=== PATIENT | female | born 1940 | race Caucasian/White ===

== ENCOUNTER 2018-01-22 09:49 | Outpatient (CLI) | payer MEDICARE | END 2018-01-22 09:50 | disposition home or self-care (01) | LOC: BICULT 09:49 | PROVIDERS: ATTEND Family Medicine | DX: N28.1 Cyst of kidney, acquired (principal); I10 Essential (primary) hypertension; Z82.71 Family history of polycystic kidney | CPT/HCPCS: 76770 ==

== ENCOUNTER 2018-02-12 14:07 | Outpatient (CLI) | payer MEDICARE | END 2018-02-12 14:08 | disposition home or self-care (01) | LOC: BICMAMMO 14:07 | PROVIDERS: ATTEND Family Medicine | DX: Z12.31 Encounter for screening mammogram for malignant neoplasm of breast (principal); Z78.0 Asymptomatic menopausal state; M81.0 Age-related osteoporosis without current pathological fracture; R92.1 Mammographic calcification found on diagnostic imaging of breast | CPT/HCPCS: 77063; 77067; 77080 ==

== ENCOUNTER 2018-05-13 14:23 | Outpatient (CLI) | payer MEDICARE | END 2018-05-13 14:24 | disposition home or self-care (01) | LOC: BICULT 14:23 | PROVIDERS: ATTEND Internal Medicine Nephrology | DX: N18.3 Chronic kidney disease, stage 3 (moderate) (principal); N28.1 Cyst of kidney, acquired | CPT/HCPCS: 36415; 76770; 80048 ==